=== PATIENT | male | born 1945 | race Caucasian/White ===

== ENCOUNTER → 2017-02-10 11:04 | Outpatient (CLI) | payer MEDICARE, OTHER | END | disposition home or self-care (01) | LOC: D.RAD 11:04 | DX: M25.511 Pain in right shoulder (principal) ==

== ENCOUNTER 2018-07-11 07:00 | Day surgery (SDC) | payer MEDICARE ==
[2018-07-07 10:15] LABS: HEMATOCRIT 43.9 % (42.0-54.0); HEMOGLOBIN 15.1 g/dL (13.5-17.5); MCH 32.2 pg (26.0-34.0); MCHC 34.4 g/dL (31.0-37.0); MCV 93.6 fL (80.0-100.0); MEAN PLATELET VOLUME 9.6 fL (7.4-10.4); RBC 4.69 10x6/uL (4.20-6.10); RDW 13.8 % (11.5-14.5); WBC 7.1 10x3/uL (4.8-10.8)
[~2018-07-11] VITALS: Ht 182.9 cm; Wt 93.4 kg
[~2018-07-11 07:00] MED LIST: ASPIRIN LOW DOSE 81M; COMPLETE SENIOR VITA; LISINOPRIL-HCT1 EAC7 PO; NEURONTIN 300300 MG PO; NORVASC5 MG PO
[2018-07-11 08:04] VITALS: BP 136/79; Ht 182.9 cm; Wt 93.4 kg
--- NOTE | 2018-07-11 10:44 | NUR ---
1030-PATIENT STATES TIRED OF WAITING FOR DR EM (PROCEDURE SCHEDULED FOR 1000) EXPLAINED THERE WAS A CODE BLUE AND GI WILL BE COMING FOR HIM SHORTLY. ADAMANT HE IS LEAVING NOW. 1035-IV D/C AND PATIENT DRESSING 1040-DISCHARGE INSTRUCTION GIVEN TO CALL DR EM TO RESCHEDULE. 1045-D/C HOME AMBULATORY.
[2018-07-11] MEDS ORDERED: PERCOCET 5-3251 TAB PO (11:38)
--- NOTE | 2018-07-11 12:29 | NUR ---
CARE TO FLORY MORALES RN @[id number]
--- NOTE | 2018-07-11 13:08 | OP ---
PATIENT NAME: BEAN PETIT MEDICAL RECORD: [id number] :47 LOCATION:[facility] ADMISSION DATE: SURGEON: JACOBY SHIN DO DATE OF OPERATION: 07/11/2018 PROCEDURE PERFORMED: Right shoulder arthroscopy with subacromial decompression, distal clavicle excision, biceps tenotomy, labral debridement and mini open rotator cuff repair. PREOPERATIVE DIAGNOSES: Right shoulder rotator cuff tear, SLAP tear, acromioclavicular joint arthritis, and subacromial impingement. POSTOPERATIVE DIAGNOSES: Right shoulder rotator cuff tear, SLAP tear, acromioclavicular joint arthritis, and subacromial impingement. INDICATIONS: Mr. Petit is a 72-year-old male that presented to my office several months ago with right shoulder pain. He had some weakness, got an MRI that showed a partial tear of the supraspinatus and infraspinatus on the articular side. He noted to get better initially and then got worse and had more weakness and pain. Due to this fact, I told him we could scope the shoulder and that he likely had a full-thickness tear of his rotator cuff and that we would fix that and do the other procedures. He was okay with that. I informed him of the risks and benefits including infection, bleeding, damage to nerve and vessels, need for further surgery, frozen shoulder, and continued pain. He signed the consent. SURGEON: Jacoby Shin DO CONTAMINATION CONSULTANT: I was assisted by Ky Vanegas, advanced nurse practitioner, who assisted with holding instruments and closing. This could not have been performed without his assistance. The patient received a block by anesthesia in the preoperative area, was given 900 mg of clindamycin preoperatively. He was taken to the operative suite, laid in the left lateral decubitus position with the right arm up. The time out was performed, everyone was in agreement as to the correct side, site, patient and procedure. He was then sedated and LMA was placed. The right shoulder was prepped and draped in a sterile fashion. Once it was prepped and draped, the procedure began with insufflating the joint with 60 mL of normal saline through the posterior portal with an 18-gauge spinal needle. This was then removed and an 11 blade scalpel was used to create the posterior portal and then the trocar was entered into the shoulder joint. Once the camera was entered in the shoulder joint, the anterior portal was established with an 18-gauge spinal needle and 11-blade scalpel and trocar and the burner was brought in and the labrum was seen to be torn at the superior portion of it, anterior to posterior, and then the biceps was tenotomized at that point with a burner. The subscapularis tendon was inspected and seen to be in good repair. No tears in it. There was some grade II chondromalacia of the humeral head, but the infraspinatus and supraspinatus were inspected and did indeed have a full thickness tear on the articular surface, more so in the supraspinatus. This was identified and marked with an 18-gauge spinal needle. Then, the camera was removed. The trocar was entered and the subacromial space was entered. A lateral portal was then established with an 11-blade scalpel and a trocar and then the burner was brought in to clean out the acromion. There was a good size spur on the distal lateral acromion and this was taken off with a shaver as well as on the distal clavicle. It was almost touching the acromion at the AC joint. The shaver was brought in through the anterior portal and the OPERATIVE REPORT [id number] BEAN PETIT distal clavicle was excised opening up the joint to approximately 7 mm. The bursa was then removed off the rotator cuff and the tear was seen in the rotator cuff. We then converted to open. The water was turned off, suction was turned on and then the lateral incision was then elongated with a #15 blade scalpel and a careful dissection was made down to the tear itself. It was dissected out, the bursa was removed off of the rotator cuff tendon. Two anchors were put in, 1 anterior and 1 posterior after the decortication was done with a shaver and then the rotator cuff tendon was grasped a bit through with the FiberTape anterior and posterior. These were cut and then crossed and then 2 lateral anchors were put in on the humerus, securing the tear very nicely and compressing it down. The excess suture were then cut. The bicep was seen on the joint to be cut and the groove did not move. Therefore, the biceps tenodesis was not performed and we elected to do a tenotomy due to the fact that it did not retract wholly. Once the rotator cuff repair was done, the site was thoroughly irrigated and the portal sites anterior and posterior were closed with 4-0 Monocryl in inverted interrupted fashion. The lateral larger incision with the mini open cuff repair was closed with deltoid fascia, approximated with 2-0 Vicryl and then inverted interrupted on the skin with 2-0 Vicryl and then 4-0 Monocryl ran on the skin. Then, Dermabond was placed on all the incisions. The patient was then awakened and taken to recovery in stable condition. Blood loss was minimal. COMPLICATIONS: None. TRANSINT:[id number] Voice Confirmation ID: [id number] DOCUMENT ID: [id number] JACOBY SHIN DO at 1308 CC: [id number] DICTATION DATE: 07/11/18 1146 MOTOR INSPECTION MECHANIC: 07/11/18 1242 [facility] [address] [place] [address]
== END 2018-07-11 14:53 | disposition home or self-care (01) ==
LOC: D.OPS 07:00 → D.PAN 12:15 → D.OPS 14:53
PROVIDERS: Anesthesiology; ATTEND Orthopaedic Surgery
DX: M75.111 Incomplete rotator cuff tear or rupture of right shoulder, not specified as traumatic (principal); S43.431A Superior glenoid labrum lesion of right shoulder, initial encounter; M13.811 Other specified arthritis, right shoulder; M75.41 Impingement syndrome of right shoulder; Z01.812 Encounter for preprocedural laboratory examination

== ENCOUNTER 2020-01-28 11:27 | Emergency (ER) | payer MEDICARE ==
[~2020-01-28] VITALS: Ht 182.9 cm; Wt 93.2 kg
[~2020-01-28 11:27] MED LIST changes: +PERCOCET 5-3251 TAB PO
[2020-01-28 11:32] VITALS: BP 163/76; Ht 182.9 cm; Wt 93.2 kg
[2020-01-28 12:11] LABS: BASOPHILS 0.2 % (0-2); EOSINOPHILS 0.7 % (0-7); HEMATOCRIT 43.9 % (42.0-54.0); HEMOGLOBIN 14.9 g/dL (13.5-17.5); IMMATURE GRANULOCYTES 0.4 % (0-5); LYMPHOCYTES 10.5 % (15-50); MCH 31.6 pg (26.0-34.0); MCHC 33.9 g/dL (31.0-37.0); MCV 93.2 fL (80.0-100.0); MEAN PLATELET VOLUME 9.9 fL (7.4-10.4); MONOCYTES 6.7 % (2-11); NEUTROPHILS 81.5 % (40-80); PLATELET COUNT 241 10x3/uL (130-400); RBC 4.71 10x6/uL (4.20-6.10); RDW 13.3 % (11.5-14.5)
[2020-01-28 12:15] LABS: CALC OSMOLALITY 282 mosm/kg (275-300); CALCIUM 9.4 mg/dL (8.5-10.1); CARBON DIOXIDE 30.6 mmol/L (21.0-32.0); CHLORIDE - SERUM 99 mmol/L (98-107); CREATININE - SERUM 0.9 mg/dL (0.6-1.3); GLUCOSE 208 mg/dL (74-106); POTASSIUM - SERUM 3.7 mmol/L (3.5-5.1); SODIUM 138 mmol/L (136-145); UREA NITROGEN 14 mg/dL (7-18); eGFR NON AFRICAN AMERICAN 88 mL/min (90-120)
[2020-01-28 12:21] LABS: ALKALINE PHOSPHATASE 81 U/L (30-120); ALT (SGPT) 20 U/L (10-68); APTT 25.6 SECONDS (22.8-39.4); BILIRUBIN - TOTAL 0.77 mg/dL (0.2-1.3); PROTEIN - SERUM 7.4 g/dL (6.4-8.2)
[2020-01-28 12:22] LABS: INR 0.98 (0.85-1.17); PROTIME 12.9 SECONDS (11.6-15.0)
[2020-01-28] MEDS ORDERED: HYDROCODON-ACE1 EAC7 PO (13:46)
[2020-01-28] MEDS ORDERED: ZOFRAN ODT4 MG/UDTAB PO (14:00)
[2020-01-28 14:37] LABS: BACTERIA FEW HPF (NONE SEEN); BILIRUBIN NEGATIVE (NEGATIVE); EPITHELIAL CELLS OCC /hpf (0-5); KETONE NEGATIVE (NEGATIVE); NITRITE NEGATIVE (NEGATIVE); UROBILINOGEN NORMAL mg/dL (< 2); WHITE CELLS - URINE RARE HPF (0-1)
== END 2020-01-28 17:11 | disposition home or self-care (01) ==
LOC: D.ER 11:27
PROVIDERS: Family Medicine
DX: S20.211A Contusion of right front wall of thorax, initial encounter (principal); S80.01XA Contusion of right knee, initial encounter; W19.XXXA Unspecified fall, initial encounter; Y93.53 Activity, golf; S09.90XA Unspecified injury of head, initial encounter; S42.001A Fracture of unspecified part of right clavicle, initial encounter for closed fracture; S22.41XA Multiple fractures of ribs, right side, initial encounter for closed fracture; R31.9 Hematuria, unspecified; S39.012A Strain of muscle, fascia and tendon of lower back, initial encounter; I10 Essential (primary) hypertension; M54.9 Dorsalgia, unspecified

== ENCOUNTER 2020-02-01 09:47 | Day surgery (SDC) | payer MEDICARE ==
[~2020-02-01] VITALS: Ht 182.9 cm; Wt 93.0 kg
[~2020-02-01 09:47] MED LIST changes: +HYDROCODON-ACE1 EAC7 PO; +ZOFRAN ODT4 MG/UDTAB PO; +[UNRECOGNIZED DRUG - OTHER]
[2020-02-01 10:18] LABS: HEMATOCRIT 41.8 % (42.0-54.0); HEMOGLOBIN 14.1 g/dL (13.5-17.5); MCH 31.7 pg (26.0-34.0); MCHC 33.7 g/dL (31.0-37.0); MCV 93.9 fL (80.0-100.0); MEAN PLATELET VOLUME 9.7 fL (7.4-10.4); RBC 4.45 10x6/uL (4.20-6.10); RDW 13.3 % (11.5-14.5); WBC 8.2 10x3/uL (4.8-10.8)
[2020-02-01 11:52] VITALS: BP 121/72; Ht 182.9 cm; Wt 93.0 kg
--- NOTE | 2020-02-01 17:14 | NUR ---
1700 IV REMOVED AND INSTRUCTIONS GIVEN.
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
== END 2020-02-01 17:14 | disposition home or self-care (01) ==
LOC: D.OPS 09:47
PROVIDERS: Anesthesiology; ATTEND Orthopaedic Surgery
DX: S42.021A Displaced fracture of shaft of right clavicle, initial encounter for closed fracture (principal); X58.XXXA Exposure to other specified factors, initial encounter; M65.341 Trigger finger, right ring finger; M25.511 Pain in right shoulder; I10 Essential (primary) hypertension; E78.5 Hyperlipidemia, unspecified